=== PATIENT | female | born 1980 | race Caucasian/White ===

== ENCOUNTER 2020-08-29 09:27 | Outpatient (CLI) | payer BC, SELFPAY ==
--- NOTE | 2020-08-29 09:30 | US_ITS ---
WS: [id number] ULTRASOUND SOFT TISSUES LEFT axilla. HISTORY: R22.32 - Localized swelling, mass and lump, left upper limb COMPARISON: None available. TECHNIQUE: 2-D and color Doppler imaging is submitted. The area soft tissue thickening corresponds to an isoechoic mass measuring 4.5 x 3.0 cm in the LEFT a xilla. This is deep to the subcutaneous soft tissue. No increased vascularity. I favor this is probab ly a lipoma due to its characteristics. US/US soft tissue/extremity 47761 IMPRESSION: Palpable area in the LEFT axilla is very nonspecific and probably represents a benign lipoma. Clinically if there is continued concern further evaluation by C T may be helpful to evaluate the surrounding structures.
[2020-08-29 10:13] LABS: Basophils % 0.4 %; Eosinophils # 0.1 10^3/uL (0.0-0.8); Eosinophils % 1.8 %; Hematocrit 42.5 % (37.0-47.0); Hemoglobin 13.5 g/dL (11.5-15.3); Lymphocytes # 2.2 10^3/uL (0.8-4.8); Lymphocytes % 29.9 %; Mean Corpuscular HGB Conc 31.8 g/dL (30.0-36.0); Mean Corpuscular Hemoglobin 29.7 pg (28.0-34.0); Mean Corpuscular Volume 93.4 fL (81-99); Mean Platelet Volume 9.5 fL (7.4-10.4); Monocytes # 0.5 10^3/uL (0.2-0.9); Monocytes % 7.2 %; Neutrophils # 4.46 10^3/uL (1.8-7.7); Neutrophils % 60.4 %; Nucleated Red Blood Cells % 0 %; Platelet Count 321 10^3/cmm (130-400); Red Blood Count 4.55 10^6/uL (4.1-5.3); Red Cell Distribution Width 13.2 % (12.1-15.1); White Blood Count 7.4 10^3/uL (4.0-10.0)
== END 2020-08-29 09:28 | disposition home or self-care (01) ==
LOC: US 09:36
PROVIDERS: PCP Nurse Practitioner Family; Visit Provider Nurse Practitioner Family
DX: R22.32 Localized swelling, mass and lump, left upper limb (principal)
CPT/HCPCS: 36415; 76882; 85025

== ENCOUNTER → 2021-02-13 10:06 | Outpatient (BNVA) | payer BC, SELFPAY | PROVIDERS: PCP Nurse Practitioner Family; Visit Provider Nurse Practitioner Family | DX: N20.0 Calculus of kidney (principal); M54.9 Dorsalgia, unspecified; L91.8 Other hypertrophic disorders of the skin; R31.9 Hematuria, unspecified; Z12.4 Encounter for screening for malignant neoplasm of cervix | CPT/HCPCS: 81000; 88175 ==

== ENCOUNTER → 2023-06-25 08:40 | Outpatient (BNVA) | payer BC, SELFPAY | PROVIDERS: PCP Nurse Practitioner Family; Referring Provider Registered Nurse; Visit Provider Nurse Practitioner Women's Health | DX: N93.9 Abnormal uterine and vaginal bleeding, unspecified (principal); Z12.4 Encounter for screening for malignant neoplasm of cervix | CPT/HCPCS: 84443; 84702; 85025; 87624 ==

== ENCOUNTER → 2023-07-12 15:19 | Outpatient (BNVA) | payer BC, SELFPAY | PROVIDERS: PCP Nurse Practitioner Family; Visit Provider Nurse Practitioner Women's Health | DX: N92.0 Excessive and frequent menstruation with regular cycle (principal); D25.1 Intramural leiomyoma of uterus | CPT/HCPCS: 76830 ==

== ENCOUNTER → 2023-07-15 15:12 | Outpatient (BNVA) | payer BC, SELFPAY | PROVIDERS: PCP Nurse Practitioner Family; Visit Provider Nurse Practitioner Women's Health | DX: N93.9 Abnormal uterine and vaginal bleeding, unspecified (principal); N81.2 Incomplete uterovaginal prolapse | CPT/HCPCS: 81025; 88305 ==

== ENCOUNTER → 2023-08-10 11:42 | Day surgery (SDC) | payer BC, SELFPAY ==
[2023-08-02 10:11] LABS: OR HCG Qualitative Urine Negative (Negative)
[2023-08-02 10:25] LABS: Add Urine Microscopic? YES; Bilirubin Urine Neg (Negative); Blood Urine 2+ (Negative); Glucose Urine UA Norm (Normal); Ketones Urine Negative (Negative); Leukocyte Esterase Urine Negative (Negative); Nitrate Urine Negative (Negative); Protein Urine Neg (Negative); Specific Gravity, Urine 1.015 (1.005-1.030); Urine Appearance Clear (CLEAR); Urine Color Yellow (Yellow); Urobilinogen Urine Norm (Negative); pH Urine 5 (5-7)
--- NOTE | 2023-08-02 10:25 | ANES.PREANE2 ---
Pre-Anesthetic Assessment Height/Weight: Height 1.57 m Preop Diagnosis: abnormal uterine bleeding Operation Date: 08/10/23 13:25 Proposed Procedures p Hysteroscopy, polypectomy with Myosure 00737 D25.9,N93.9(Not Applicable) - Sacha Sewell MD s Poylpectomy(Not Applicable) - Sacha Sewell MD Familial anesthetic complications: none Was Beta Pito taken within 24 hours: N/A Was Clonidine taken within 24 hours: N/A Social No alcohol and No tobacco Exam alert, oriented x 3, clear to auscultation bilaterally and regular rate & rhythm Airway Submandibular: within normal limits Cervical ROM: within normal limits Mallampati: Class II Dentition: full CV/HEM Hypertension Metabolic Diabetes Mellitus Anesthetic Plan ASA status: 2 Anesthesia: General Medications/Allergies Home Medications Medication Instructions Recorded Confirmed Last Taken Type semaglutide 0.25 mg or 0.5 mg (2 0.5 mg SUBCUT .once weekly 06/25/23 08/02/23 07/30/23 History mg/1.5 mL) subcutaneous pen injector norgestimate 0.25 mg-ethinyl 1 tab PO DAILY contraception, 07/26/23 08/02/23 08/02/23 Rx estradiol 35 mcg tablet (Sprintec menorrhagia #84 tabs (28)) lisinopril 10 mg tablet 10 mg PO DAILY 08/02/23 08/02/23 08/02/23 History Allergies Allergy/AdvReac Type Severity Reaction Status Date / Time No Known Allergies Allergy Verified 08/02/23 09:30 [facility] Anesthesia Medical History Hypertension No pertinent past medical history neghx: thyroid,dvt/pe PCP: Satya Heath at [facility] Type 2 diabetes mellitus Surgical History History of bilateral carpal tunnel release History of cholecystectomy History of tonsillectomy and adenoidectomy Family History Grandmother Breast cancer Grandfather Diabetes Mother Hypertension Thyroid disease Denies family history of Colon cancer Ovarian cancer Prostate cancer Heart disease Hyperlipidemia Uterine cancer Stroke Female Reproductive History Date of last menstrual period: 08/02/23 Data Anesthesia 08/02/23 09:42 08/02/23 09:42 Cardiac Studies: No Data to Display
[2023-08-02 10:28] LABS: Add Urine Culture? No; Bacteria Urine TRACE /hpf; Mucus Urine 1+ /hpf; RBC Urine 0-4 /hpf (0-2); Squamous Epithelial Cell Urine 0-4 /hpf (0-5); WBC Urine RARE /hpf (0-5)
[2023-08-02 10:30] LABS: Basophils % 0.5 %; Eosinophils # 0.1 10^3/uL (0.0-0.8); Eosinophils % 2.2 %; Hematocrit 39.2 % (36-47); Lymphocytes % 32.2 %; Mean Corpuscular HGB Conc 32.9 g/dL (30-55); Mean Corpuscular Hemoglobin 30.2 pg (27-33); Mean Corpuscular Volume 91.8 fl (85-98); Mean Platelet Volume 10.7 fL (7.4-10.4); Monocytes # 0.3 10^3/uL (0.2-0.9); Monocytes % 5.4 %; Neutrophils # 3.71 10^3/uL (1.8-7.7); Neutrophils % 59.5 %; Nucleated Red Blood Cells % 0 %; Platelet Count 272 10^3/cmm (157-399); Red Blood Count 4.27 10^6/uL (3.85-5.65); Red Cell Distribution Width 12.9 % (12.1-15.1); White Blood Count 6.24 10^3/uL (3.29-11.43)
[2023-08-02 10:52] LABS: Alanine Aminotransferase 12 U/L (0-33); Albumin Level 3.8 g/dL (3.5-5.2); Alkaline Phosphatase 54 U/L (35-105); Anion Gap 13.9 (5-19); Aspartate Amino Transferase 12 U/L (0-32); Blood Urea Nitrogen 13 mg/dL (6-20); Calcium 8.6 mg/dL (8.5-10.5); Carbon Dioxide 22 mmol/L (22-29); Chloride 104 mmol/L (98-107); Globulin 2.9 g/dL (1.3-4.6); Glomerular Filtration Rate 110.2 mL/min (90-130); Glucose 87 mg/dL (65-115); Osmolality Calculated 281 mOsm/kg (285-295); Potassium 3.9 mmol/L (3.5-5.1); Sodium 136 mmol/L (136-145); Total Bilirubin 0.7 mg/dL (0.15-1.2); Total Protein 6.7 g/dL (6.6-8.7)
[2023-08-10] VITALS (13 sets, daily range): BP systolic 134–158; BP diastolic 84–100; PULSE 74–92; RESP 10–19; TEMP 36.3–36.8; O2SAT 90–100; BMI 29.4
[2023-08-10 12:15] LABS: OR HCG Qualitative Urine Negative (Negative)
[2023-08-10 12:32] LABS: Glucose Point of Care 81 mg/dL (70-110)
[2023-08-10] MEDS: scopolamine 1.5 Patch 1 PATCH TRANSDERMA (12:49)
[2023-08-10] MEDS: enoxaparin 30 mg/0.3 mL Syringe SUBCUT (12:49)
[2023-08-10] MEDS: sodium chloride 0.9% 500 ML IV (12:50)
--- NOTE | 2023-08-10 13:06 | P.ANESUD_ITS ---
Pre-Anesthetic Update Pre-Anesthetic Assessment: Date of Surgery/Procedure: 08/10/23 Preop Miranda gnosis: abnormal uterine bleeding Proposed Procedure: Operation Date: 08/10/23 13:25 Proposed Procedures p Hysteroscopy, polypectomy with Myosure 31865 D25.9,N93.9(Not Applicable) - Sacha Sewell MD s Poylpectomy(Not Applicable) - Sacha Sewell MD Any changes to Pre-Anesthetic Assessment?: No Last Intake: Intake Last Liquid Date 08/09/23 Last Liquid Time 21:00 Last Solid Date 08/09/23 Last Solid Time 21:00 Vitals: Temperature 97.4 F L 08/10/23 12:07 Temperature Source Temporal Artery S can 08/10/23 12:07 Pulse Rate 74 08/10/23 12:07 Pulse Rhythm Regular 08/10/23 12:09 Pulse Strength 3+ Normal 08/10/23 12:09 Respiratory Rate 16 08/10/23 12:07 Blood Pressure 139/90 08/10/23 12:07 Blood Pressure Valeria n 106 08/10/23 12:07 Pulse Oximetry 100 08/10/23 12:07 Oxygen Delivery Me thod Room Air 08/10/23 12:09 Exam: Pre-Anes Outpt Exam: alert, oriented x 3, clear to auscultation bilaterally and regular rate & rhythm Cardiac Studies: No Data to Display
--- NOTE | 2023-08-10 13:30 | W.PM.OPSUD ---
Surgery/Procedure H&P Update DATE OF PROCEDURE: August 10, 2023 DATE H&P PERFORMED: 08/02/23 H&P UPDATE INFORMATION: I have reviewed H&P completed within last 30 days, I have examined patient prior to procedure and No changes to prior documentation PREOP DIAGNOSIS: abnormal uterine bleeding PLANNED PROCEDURE: Operation Date: 08/10/23 13:25 Proposed Procedures p Hysteroscopy, polypectomy with Myosure 67771 D25.9,N93.9(Not Applicable) - Sacha Sewell MD s Poylpectomy(Not Applicable) - Sacha Sewell MD
[2023-08-10] MEDS: sodium chloride 0.9% 1,000 ML 30 ML IV (13:34)
[2023-08-10] MEDS: ceFAZolin 2,000 MG in sodium chloride 0.9% (plus) 50 ML 100 MG IV (15:24)
[2023-08-10] MEDS: lidocaine-epi 2% 20 mL INJ INJECTION (15:40)
--- NOTE | 2023-08-10 16:04 | PM.OP ---
Operative Report Date of procedure: August 10, 2023 Surgeon: Sacha Sewell MD
--- NOTE | 2023-08-10 16:05 | PM.OP ---
Operative Report Date of procedure: August 10, 2023 Pre-op diagnosis: Abnormal uterine bleeding Post-op diagnosis: Abnormal uterine bleeding Uterine prolapse stage3 Procedure done: Hysteroscopy and D&C via MyoSure Surgeon: Sacha Sewell MD Estimated blood loss (mL): 10 IV fluids (mL): 800 Complications: none Findings: Uterine prolapase stage3 Procedure: After informed consent, the risks included but were not limited to bleeding, infection, injury to internal organs. The patient was counseled on a possible laparotomy and on the potential need for hysterectomy. The patient expressed understanding of the risks involved, all questions were answered, and the patient consented to the procedure. The patient was taken to the operating room where general anesthesia was administered. She was placed in the dorsal lithotomy position and prepped and draped in sterile fashion. A time out procedure was performed. The patient was examined under anesthesia and found to have a normal uterus with normal adnexa. A sterile weight speculum was placed in the vagina. The uterus was then gently sounded to 9 cm, and the cervix was dilated. The 0 degrees MyoSure hysteroscope was advanced gently to the uterine fundus while visualizing the monitor. Survey of the uterine cavity showed: Proliferative endometrium, the fundus shows normal proliferative endometrium; left ostium was visualized, and lateral wall with proliferative endometrium; right ostium visualized, and lateral wall with proliferative endometrium; anterior and posterior cochran are with proliferative endometrium; endocervical canal is normal. The MyoSure device was advanced and the direct visualization the endometrium was morcellated without complication. At the end of morcellation the fluid deficit was 200 mL and was estimated at approximately 200 mL were on the floor. There was minimal bleeding noted and the tenaculum removed with goad hemostasis noted. The patient tolerated the procedure well. The patient was taken to the recovery area in stable condition.
[2023-08-10] MEDS: ondansetron 2 mg/ML SDV 2 mL 4 MG IVP ×2 (16:35→16:55)
[2023-08-10] MEDS: fentaNYL 50 mcg/mL INJ 2mL IVP (16:35)
[2023-08-10 16:57] LABS: Glucose Point of Care 95 mg/dL (70-110)
[2023-08-10] MEDS: ketorolac 30 mg/mL INJ IVP (17:33)
[2023-08-10] MEDS: diphenhydrAMINE 50 mg/mL SDV 1mL 12.5 MG IVP (17:58)
--- NOTE | 2023-08-10 18:10 | PC.NURSE ---
1740-Report taken received from Sarmad Rooney R.N. and care turned over to me.
== END | disposition home or self-care (01) ==
PROVIDERS: PCP Registered Nurse; Visit Provider Obstetrics & Gynecology
PROC: 0UDB8ZZ Extraction of Endometrium, Via Natural or Artificial Opening Endoscopic (ICD-10-PCS; CPT 58558; principal; 2023-08-10 13:15)
PROC: (CPT 58558; 2023-08-10 13:15)
DX: N93.9 Abnormal uterine and vaginal bleeding, unspecified (principal); I10 Essential (primary) hypertension; E11.9 Type 2 diabetes mellitus without complications
CPT/HCPCS: 58558; 36415; 36416; 80053; 81001; 81025; 82962; 84703; 85025; 86850; 86900; 88305; J0690; J1100; J1200; J1650; J1885; J2250; J2405; J2704; J3010; J7030; J7040

== ENCOUNTER 2024-02-01 16:52 | Observation (INO) | payer BC, SELFPAY ==
--- NOTE | 2024-01-24 11:56 | P.ANESASSM_ITS ---
Pre-Anesthetic Assessment Height/Weight: Height 1.57 m Operation Date: 02/01/24 13:50 Proposed Procedures p Total Vaginal Hysterectomy(Not Applicable) - Sacha Sewell MD s Anterior Repair Anterior Colporrhaphy(Not Applicable) - Sacha Sewell MD s Posterior Repair Posterior Colporrhaphy(Not Applicable) - Sacha Sewell MD s Sling Single Incision Midurethral Sling(Not Applicable) - Sacha Sewell MD Social No alcohol and No tobacco Exam alert, oriented x 3, clear to auscultation bilaterally and regular rate & rhythm Airway Submandibular: within normal limits Cervical ROM: within normal limits Mallampati: Class I Pulmonary None reported CV/HEM Hypertension None reported Hepatic None reported GI None reported Metabolic Diabetes Mellitus 80 lb weight loss on Semaglutide Musc/skel None reported Anesthetic Plan ASA status: 2 Anesthesia: General Other: hx of PONV. Will plan on TIVA Medications/Allergies Home Medications Medication Instructions Recorded Confirmed Last Taken Type semaglutide 0.25 mg or 0.5 mg (2 0.5 mg SUBCUT .once weekly 06/25/23 01/24/24 01/21/24 History mg/1.5 mL) subcutaneous pen injector lisinopril 10 mg tablet 5 mg PO DAILY 08/02/23 01/24/24 01/24/24 History acetaminophen 325 mg capsule 325 mg PO Q4H PRN fever or pain 08/10/23 01/24/24 Unknown Rx #60 caps ibuprofen 800 mg tablet 800 mg PO TID PRN pain #60 tabs 08/10/23 01/24/24 Unknown Rx norgestimate 0.25 mg-ethinyl 1 tab PO DAILY contraception, 09/23/23 01/24/24 01/24/24 Rx estradiol 35 mcg tablet (Sprintec menorrhagia #84 tabs (28)) biotin 10,000 mcg chewable tablet mcg PO 01/24/24 Unknown History (Hair, Skin and Nails (biotin)) bisacodyl 5 mg tablet,delayed 5 mg PO DAILY 01/24/24 01/24/24 01/24/24 History release (Dulcolax (bisacodyl)) cholecalciferol (vitamin D3) 50 50 mcg PO DAILY 01/24/24 01/24/24 01/24/24 History mcg (2,000 unit) tablet (Vitamin D3) magnesium 500 mg tablet 15 mg PO DAILY 01/24/24 01/24/24 01/24/24 History mecobalamin (vitamin B12) 1,000 1,000 mcg PO DAILY 01/24/24 01/24/24 01/24/24 History mcg chewable tablet (B12 Active) [id number] 1 mg tab PO 01/24/24 Unknown History tablet Allergies Allergy/AdvReac Type Severity Reaction Status Date / Time No Known Allergies Allergy Verified 01/24/24 11:19 ON LICENSE OF [facility] Anesthesia Medical History No pertinent past medical history neghx: thyroid,dvt/pe PCP: Sat[facility] at [facility] Type 2 diabetes mellitus Hypertension Surgical History History of hysteroscopy (~08/10/23) with d&C via MyoSure performed by Dr. Sewell at [facility]. Benign pathology; benign polyp. History of tonsillectomy and adenoidectomy History of bilateral carpal tunnel release History of cholecystectomy Family History Grandmother Breast cancer Grandfather Diabetes Mother Hypertension Thyroid disease Denies family history of Colon cancer Ovarian cancer Prostate cancer Heart disease Hyperlipidemia Uterine cancer Stroke Data Anesthesia Cardiac Studies: No Data to Display
[2024-02-01] VITALS (14 sets, daily range): BP systolic 110–176; BP diastolic 64–101; PULSE 64–97; RESP 16–23; TEMP 36.1–37.6; O2SAT 93–100; BMI 31.2
[2024-02-01 12:19] LABS: OR HCG Qualitative Urine Negative (Negative)
[2024-02-01] MEDS: scopolamine 1.5 Patch 1 PATCH TRANSDERMA (12:22)
[2024-02-01] MEDS: sodium chloride 0.9% 1,000 ML 30 ML IV (12:24)
[2024-02-01 12:26] LABS: Basophils % 0.6 %; Eosinophils # 0.3 10^3/uL (0.0-0.8); Eosinophils % 4.2 %; Hematocrit 43.4 % (36-47); Lymphocytes # 2.4 10^3/uL (0.8-4.8); Lymphocytes % 38.4 %; Mean Corpuscular HGB Conc 32.9 g/dL (30-55); Mean Corpuscular Hemoglobin 30.7 pg (27-33); Mean Corpuscular Volume 93.1 fl (85-98); Mean Platelet Volume 9.9 fL (7.4-10.4); Monocytes # 0.3 10^3/uL (0.2-0.9); Monocytes % 5.2 %; Neutrophils # 3.19 10^3/uL (1.8-7.7); Neutrophils % 51.4 %; Nucleated Red Blood Cells % 0 %; Platelet Count 267 10^3/cmm (157-399); Red Blood Count 4.66 10^6/uL (3.85-5.65); Red Cell Distribution Width 12.9 % (12.1-15.1)
[2024-02-01 12:29] LABS: Bilirubin Urine Neg (Negative); Blood Urine 3+ (Negative); Glucose Urine UA Norm (Normal); Ketones Urine Negative (Negative); Leukocyte Esterase Urine Negative (Negative); Nitrate Urine Negative (Negative); Protein Urine Neg (Negative); Specific Gravity, Urine 1.015 (1.005-1.030); Urine Appearance Clear (CLEAR); Urine Color Yellow (Yellow); Urobilinogen Urine Norm (Negative); pH Urine 5 (5-7)
[2024-02-01 12:31] LABS: Add Urine Culture? No; RBC Urine 0-4 /hpf (0-2); Squamous Epithelial Cell Urine RARE /hpf (0-5); WBC Urine 0-4 /hpf (0-5)
[2024-02-01 12:46] LABS: Anion Gap 15.7 (5-19); Blood Urea Nitrogen 13 mg/dL (6-20); Carbon Dioxide 24 mmol/L (22-29); Chloride 104 mmol/L (98-107); Creatinine Clr Calc Pharmacy 118.9897; Glomerular Filtration Rate 110.2 mL/min (90-130); Glucose 85 mg/dL (65-115); Osmolality Calculated 289 mOsm/kg (285-295); Potassium 3.7 mmol/L (3.5-5.1); Sodium 140 mmol/L (136-145)
[2024-02-01] MEDS: ceFAZolin 2,000 MG in sodium chloride 0.9% (plus) 50 ML 100 MG IV (13:19)
--- NOTE | 2024-02-01 13:41 | W.PM.OPSUD ---
Surgery/Procedure H&P Update DATE OF PROCEDURE: February 01, 2024 DATE H&P PERFORMED: 01/24/24 H&P UPDATE INFORMATION: I have reviewed H&P completed within last 30 days, I have examined patient prior to procedure and No changes to prior documentation PLANNED PROCEDURE: Operation Date: 02/01/24 13:20 Proposed Procedures p Total Vaginal Hysterectomy(Not Applicable) - Sacha Sewell MD s Anterior Repair Anterior Colporrhaphy(Not Applicable) - MD mendoza Guan Posterior Repair Posterior Colporrhaphy(Not Applicable) - Sacha Sewell MD s Sling Single Incision Midurethral Sling(Not Applicable) - Sacha Sewell MD
--- NOTE | 2024-02-01 13:50 | ANES.PAUD2 ---
Pre-Anesthetic Update Pre-Anesthetic Assessment: Date of Surgery/Procedure: 02/01/24 Proposed Procedure: Operation Date: 02/01/24 13:20 Proposed Procedures p Total Vaginal Hysterectomy(Not Applicable) - Sacha Sewell MD s Anterior Repair Anterior Colporrhaphy(Not Applicable) - Sacha Sewell MD s Posterior Repair Posterior Colporrhaphy(Not Applicable) - Sacha Sewell MD s Sling Single Incision Midurethral Sling(Not Applicable) - Sacha Sewell MD Any changes to Pre-Anesthetic Assessment?: No Last Intake: Intake Last Liquid Date 01/31/24 Last Liquid Time 22:00 Last Solid Date 01/31/24 Last Solid Time 22:00 Labs Last 48hrs: Short CBC 02/01/24 Range/Units 12:15 WBC 6.20 (3.29-11.43) 10^ 3/uL Hgb 14.30 (11.27-16.99) g/ dL Hct 43.4 (36-47) % MCV 93.1 (85-98) fl Plt Count 267 (157-399) 10^3/c mm Neut % (Auto) 51.4 % Neut # (Auto) 3.19 (1.8-7.7) 10^3/u L BMP 02/01/24 12:15 Sodium 140 Potassium 3.7 Chloride 104 Carbon Dioxide 24 BUN 13 Creatinine 0.6 Glucose 85 Calcium 9.0 Urine 02/01/24 Range/Units 12:00 Urine Color Yellow (Yellow) Urine Appearance Clear (CLEAR) Urine pH 5 (5-7) Ur Specific Gravit y 1.015 (1.005-1.030) Urine Protein Neg (Negative) Urine Glucose (UA) Norm (Normal) Urine Ketones Negative (Negative) Urine Nitrate Negative (Negative) Urine Bilirubin Neg (Negative) Ur Leukocyte Jazlyn ase Negative (Negative) Urine RBC 0-4 H (0-2) /hpf Urine WBC 0-4 H (0-5) /hpf Blood Bank 02/01/24 12:15 Blood Type A Positive Rho(D) Type Rh positive Antibody Screen Negative Vitals: Temperature 98.0 F 02/01/24 12:21 Pulse Rate 69 02/01/24 12:21 Respiratory Rate 17 02/01/24 12:21 Blood Pressure 176/101 02/01/24 12:21 Blood Pressure Valeria n 126 02/01/24 12:21 Pulse Oximetry 99 02/01/24 12:21 Exam: Pre-Anes Outpt Exam: alert, oriented x 3, clear to auscultation bilaterally and regular rate & rhythm Cardiac Studies: No Data to Display
[2024-02-01] MEDS: lidocaine-epi 2% PF 1:200,000 20 mL SDV INJECTION (14:56)
[2024-02-01] MEDS: lidocaine-epi 1% PF 1:200,000 30 mL SDV INJECTION (15:56)
--- NOTE | 2024-02-01 16:30 | P.BOP_ITS ---
Date of Procedure: 02/01/24 Surgeon: Sacha Sewell MD Electrical Transmission Engineer(s): Procedure(s) performed: Total vaginal hysterectomy, anterior colporrhaphy, mid urethral sling, posterior colporrhaphy, cystoscopy Findings of the procedure(s): Uterine prolapse, cystocele, rectocele Estimated blood loss: 300 Specimen(s) removed: Uterus Post-operative diagnosis: Same as admission diagnosis
--- NOTE | 2024-02-01 16:32 | P.OP_ITS ---
Operative Report Date of procedure: February 01, 2024 Pre-op diagnosis: Cystocele with uterine prolapse Uterine fibroid Post-op diagnosis: Cystocele Uterine prolapse Rectocele Post-op findings: Enlarged uterus Procedure done: Total vaginal hysterectomy Anterior colporrhaphy Mid urethral sling Posterior colporrhaphy Implants: Coloplast Altis sling Specimens removed/disposition: Uterus Surgeon: Sacha Sewell MD Estimated blood loss (mL): 300 Complications: None Procedure: After informed consent and risks, benefits, indications and alternatives reviewed with the patient was taken to the operating room. The patient was placed in dorsal lithotomy position prepped, and draped in the usual sterile fashion. The pre-procedure timeout verifying the correct patient, procedure, site and side, could not requirements was performed and acknowledge by the OR team. A Trejo catheter was placed. A Bookwalter vaginal retractor was placed into the vagina in usual manner visualize the cervix. Cervix was grasped with a single tooth tenaculum and circumferentially infiltrated with 2% lidocaine with epinephrine. Then cervix was circumferentially incised with bovie and the bladder was dissected off the pubovesical cervical fascia anteriorly with a sponge stick and Metzenbaum scissors. The anterior peritoneal reflection was identified and the anterior cul-de-sac was entered sharply with Metzenbaum scissors. The same procedure was performed posteriorly and a posterior colpotomy was made through the posterior cul-de-sac space without difficulty and the posterior blade of the Bookwalter vaginal retractor was advanced posteriorly into the cul-de-sac. At this time, the left and right uterosacral ligaments were isolated and ligated with 0 Vicryl. The LigaSure device was placed over the uterosacral ligaments on either side and was then used in a serial fashion up through the cardinal ligaments bilaterally cross-clamped, cut, and sealed with the LigaSure device. Finally, the uterine arteries were cross-clamped, cut, sealed and ligated with the LigaSure device. Hemostasis was assured. The broad ligaments were then serially clamped, sealed and cut with the LigaSure device on both sides. Excellent hemostasis was visualized. Both cornua were clamped, sealed and cut with the LigaSure device. Then the pedicles were then suture ligated with excellent hemostasis. The uterus was excised and submitted for pathologic evaluation. No other abnormalities were noted in the pelvic cavity. The peritoneum was then closed in a pursestring fashion with 0 Vicryl suture. The vaginal cuff angles were closed with [id number] #0 Vicryl suture on both sides and transfixed with the ipsilateral cardinal and uterosacral ligaments. The remainder of the vaginal cuff was closed with #0 Vicryl in a running locked fashion. The anterior vaginal mucosa beneath the midurethra was infiltrated with 2% lidocaine with epinephrine. A vertical midline incision was made beneath the midurethra, nearly 1.5 cm length. Careful submucosal dissection was performed bilaterally up to the interior portion of the inferior pubic ramus. The insertion of adductor longus tendon on the patient?s pubic ramus was identified as reference land steven. Palpated the notch along the internal edge of ischiopubic ramus where the adductor longus tendon and the inferior pubic ramus meet. The Altis single incision sling (SIS) was selected. Then the needle of the SIS inserted aiming at the location of this notch. One of the integrated self- fixating tips place onto the needle by sliding it over the end of the needle. The needle/sling assembly was inserted toward the location of identified reference notch making sure that the flat of the handle is perpendicular to the desired path. The needle was tracked along the posterior surface of the ischiopubic ramus until the midline steven on the mesh is approximately at the midline position under the urethra. The needle was removed and the same was repeated on the contralateral side until the appropriate sling tension under the urethra was achieved ensuring that the mesh lays flat. The needle was removed and vaginal incision was closed in a running interlocking fashion with 2-0 Vicryl. An anterior repair was then performed. The medial portion of the anterior vaginal wall was grasped with two Allis clamps and the mucosa was infiltrated with the previous vasopressin solution. The Metzenbaum scissors were used to dissect and undermine a plane medially up to the point of reflexion anteriorly of the bladder. The vaginal mucosa was incised medially. This tissue was then grasped with Cade clamps and dissected away with a combination of sharp and blunt dissection on both sides. A suture of 2-0 vicryl was then used to connect the lateral pubovesical connective tissue on either side together in a series of bites that was repeated in two layers. The excess vaginal mucosa was trimmed and the incision repaired with a locked suture of 0 vicryl. A dilute 2% lidocaine with epinephrine solution was infiltrated under the posterior vaginal mucosa midline and into the perineal body. A jw of skin was cut in the perineum. The posterior vaginal wall was opened vertically and midline up to the apex of the rectocele. The cut edges were held and splayed laterally with a series of Allis clamps. The open vaginal mucosa was then dissected laterally with a combination of sharp and blunt dissection, exposing the perirectal fascia. The perirectal fascia was then reapproximated with interrupted #2-0 Vicryl sutures to draw the lateral folds together and tuck the rectocele back. Deep interrupted sutures of #0 Vicryl were used to reapproximate the fibers of the levator ani muscles. The excess vaginal mucosa was trimmed. The posterior vaginal wall was closed with a running locked #0 Vicryl to the hymenal tags. The superficial perineal muscles were closed with running unlocked #0 Vicryl and the perineal skin was closed with running subcuticular #2-0 Vicryl. Bludigo was given IV At this time, instruments were removed from the vagina at hemostasis assured. Then the Trejo catheter was removed and cystoscope was inserted. The bladder was filled with sterile water. Complete evaluation of the bladder mucosa was performed noting no lacerations, dimpling, tears, bleeding of the mucosa or muscular layers. Both ureteral orifices were identified. Prompt excretion of urine from both ureteral orifices was noted. Cystoscope was withdrawn. Trejo catheter was then placed yielding clear alejo urine. A vaginal packing was placed and the patient was taken out of dorsal lithotomy position and awakened from the general anesthesia. The patient tolerated the procedure well and was taken to the PACU recovery room in a stable condition. Sponge, lap, needle and instruments counts were correct x3.
--- NOTE | 2024-02-01 16:57 | PC.NURSE ---
Oral airway removed. Patient remains sleepy
--- NOTE | 2024-02-01 17:12 | PC.NURSE ---
Report given to Sarmad
[2024-02-01] MEDS: fentaNYL 50 mcg/mL INJ 2mL IVP (17:15)
--- NOTE | 2024-02-01 17:45 | ANE.PACU2 ---
Inpatient post-anesthesia follow up: Airway intact: Yes Vital signs: Temperature 98.4 F Pulse Rate 64 Respiratory Rate 18 Blood Pressure 138/76 Pulse Oximetry 97 Oxygen Delivery Me thod Room Air Oxygen Flow Rate 8 Fraction of Inspir ed Oxygen Hydration adequate: Yes Nausea and vomiting: No Pain level: 1 Mental status: Baseline
[2024-02-01] MEDS: dextrose 5%-lactated ringers 1,000 ML 125 ML IV (20:56)
[2024-02-01] MEDS: HYDROcodone-acetaminophen 5-325 mg Tablet PO (21:05)
[2024-02-01] MEDS: ondansetron 2 mg/ML SDV 2 mL 4 MG IVP (21:06)
[2024-02-01] MEDS: ketorolac 30 mg/mL INJ IVP (22:51)
[2024-02-02] VITALS: BP 150/91; PULSE 94; RESP 16; TEMP 36.7; O2SAT 97
[2024-02-02 02:00] VITALS: BP 124/72; PULSE 88; RESP 17; TEMP 36.9; O2SAT 95
[2024-02-02] MEDS: ketorolac 30 mg/mL INJ IVP (05:22)
[2024-02-02 05:29] LABS: Hematocrit 34.8 % (36-47); Mean Corpuscular HGB Conc 32.8 g/dL (30-55); Mean Corpuscular Volume 91.6 fl (85-98); Mean Platelet Volume 10.1 fL (7.4-10.4); Platelet Count 217 10^3/cmm (157-399); Red Cell Distribution Width 12.7 % (12.1-15.1); White Blood Count 9.92 10^3/uL (3.29-11.43)
--- NOTE | 2024-02-02 05:37 | PC.NURSE ---
Vaginal packing removed at 0520. Pt tolerated procedure well.
[2024-02-02 05:39] VITALS: BP 138/76; PULSE 64; RESP 18; TEMP 36.9; O2SAT 97
[2024-02-02] MEDS: cholecalciferol (vitamin D3) 1,000 unit Tablet 2000 UNIT PO (08:33)
[2024-02-02] MEDS: lisinopril 10 mg Tablet 5 MG PO (08:33)
[2024-02-02] MEDS: docusate sodium 100 mg Capsule PO (08:33)
[2024-02-02] MEDS: PRENATAL VIT NO.130/IRON/FOLIC 1 EACH TABLET PO (08:33)
[2024-02-02 08:35] VITALS: BP 120/78; PULSE 62; RESP 15; TEMP 36.6; TEMP 36.7; O2SAT 98
--- NOTE | 2024-02-02 11:52 | P.DS_ITS ---
Discharge Providers AERIAL PHOTOGRAMMETRIST Date of Admission: 02/01/24 16:52 Date of Discharge: 02/02/24 Attending Provider at Admission: Sacha Sewell MD Attending Provider at Discharge: Sacha Sewell MD Primary Care Provider: ALEXI Davis Reason for Visit Reason for Visit: N39.46, N81.4 Hospital Course Hospital Course Mrs. Tobar 43-year-old female with a history of Cystocele, Uterine prolapse, Rectocele and mixed urinary incontinence. Admitted for planned total vaginal hysterectomy, anterior colporrhaphy with mid urethral sling and posterior colporrhaphy. The procedures were performed without complication. Overnight observation was uneventful. She is afebrile and hemodynamically stable postoperative day 1. Tolerating diet well. Ambulating without difficulty. She was counseled regarding pelvic rest for 6 weeks (no sex, no tampons, no vaginal douches). Return to the emergency room if any fever, increased bleeding or pain. Physical Exam Narrative: GA: Alert and oriented ?3. HEENT: WNL. Heart: Regular rate and rhythm. Lungs: Clear to auscultation bilaterally. Abdomen: Bowel sounds present, nontender. CAKE [employer]IPPER: Spotting bleeding. Extremities: No edema, no cyanosis, no calves pain. Urinary Catheter Management: Trejo: Cath Placed During This Visit: yes, but has since been removed by the nurse Reason for Continuing Indwelling Catheter: Decision to DC Catheter Urinary Catheter Date of Insertion: 02/01/24 Urinary Catheter Time of Insertion: 14:42 Date Urinary Catheter Removed: 02/02/24 Time Urinary Catheter Discontinued: 05:20 History History History 4 Term 3 0 Miscarriages/Ectopic 1 Living Children 3 Discharge Data Studies Completed and Pending Pending at discharge Category Date Time Status Pathology: Surgical [PTH] Routine Pth 02/01/24 15:21 Received Laboratory Results WBC 9.92 10^3/uL (3.29-11.43) 02/02/24 05:18 RBC 3.80 10^6/uL (3.85-5.65) L 02/02/24 05:18 Hgb 11.40 g/dL (11.27-16.99) 02/02/24 05:18 Hct 34.8 % (36-47) L 02/02/24 05:18 MCV 91.6 fl (85-98) 02/02/24 05:18 MCH 30.0 pg (27-33) 02/02/24 05:18 MCHC 32.8 g/dL (30-55) 02/02/24 05:18 RDW 12.7 % (12.1-15.1) 02/02/24 05:18 Plt Count 217 10^3/cmm (157-399) 02/02/24 05:18 MPV 10.1 fL (7.4-10.4) 02/02/24 05:18 Neut % (Auto) 51.4 % 02/01/24 12:15 Lymph % (Auto) 38.4 % 02/01/24 12:15 Zavala % (Auto) 5.2 % 02/01/24 12:15 Eos % (Auto) 4.2 % 02/01/24 12:15 Baso % (Auto) 0.6 % 02/01/24 12:15 Neut # (Auto) 3.19 10^3/uL (1.8-7.7) 02/01/24 12:15 Lymph # (Auto) 2.4 10^3/uL (0.8-4.8) 02/01/24 12:15 Zavala # (Auto) 0.3 10^3/uL (0.2-0.9) 02/01/24 12:15 Eos # (Auto) 0.3 10^3/uL (0.0-0.8) 02/01/24 12:15 Baso # (Auto) 0.0 10^3/uL (0.0-0.1) 02/01/24 12:15 Nucleated RBC % (auto) 0 % 02/01/24 12:15 Nucleated RBCs # 0.0 /100WBC 02/01/24 12:15 Sodium 140 mmol/L (136-145) 02/01/24 12:15 Potassium 3.7 mmol/L (3.5-5.1) 02/01/24 12:15 Chloride 104 mmol/L (98-107) 02/01/24 12:15 Carbon Dioxide 24 mmol/L (22-29) 02/01/24 12:15 Anion Gap 15.7 (5-19) 02/01/24 12:15 BUN 13 mg/dL (6-20) 02/01/24 12:15 Creatinine 0.6 mg/dL (0.5-0.9) 02/01/24 12:15 GFR Calculation 110.2 mL/min (90-130) 02/01/24 12:15 Glucose 85 mg/dL (65-115) 02/01/24 12:15 Calculated Osmolality 289 mOsm/kg (285-295) 02/01/24 12:15 Calcium 9.0 mg/dL (8.5-10.5) 02/01/24 12:15 Urine Color Yellow (Yellow) 02/01/24 12:00 Urine Appearance Clear (CLEAR) 02/01/24 12:00 Urine pH 5 (5-7) 02/01/24 12:00 Ur Specific Ortley 1.015 (1.005-1.030) 02/01/24 12:00 Urine Protein Neg (Negative) 02/01/24 12:00 Urine Glucose (UA) Norm (Normal) 02/01/24 12:00 Urine Ketones Negative (Negative) 02/01/24 12:00 Urine Blood 3+ (Negative) H 02/01/24 12:00 Urine Nitrate Negative (Negative) 02/01/24 12:00 Urine Bilirubin Neg (Negative) 02/01/24 12:00 Urine Urobilinogen Norm mg/dL (Negative) 02/01/24 12:00 Ur Leukocyte Esterase Negative (Negative) 02/01/24 12:00 Urine RBC 0-4 /hpf (0-2) H 02/01/24 12:00 Urine WBC 0-4 /hpf (0-5) H 02/01/24 12:00 Ur Squamous Epith Cells Rare /hpf (0-5) 02/01/24 12:00 Amorphous Sediment Not Reportable 02/01/24 12:00 Urine Bacteria None /hpf (NONE) 02/01/24 12:00 Urine Mucus None /hpf 02/01/24 12:00 Urine HCG, Qual Negative (Negative) 02/01/24 12:00 Blood Type A Positive 02/01/24 12:15 Rho(D) Type Rh positive 02/01/24 12:15 Antibody Screen Negative 02/01/24 12:15 Procedures Performed Total vaginal hysterectomy Anterior colporrhaphy Mid urethral sling Posterior colporrhaphy Cystoscopy Vitals Last Vital Signs Temp 98.0 F 05/22/24 08:35 Pulse 62 02/02/24 08:35 Resp 15 02/02/24 08:35 BP 120/78 02/02/24 08:35 Pulse Ox 98 02/02/24 08:35 O2 Del Method Room Air 02/02/24 08:35 O2 Flow Rate 8 02/01/24 16:55 Results Labs OB ([facility]): Blood Type A Positive 02/01/24 Antibody Screen Negative 02/01/24 Hct 34.8 % (36-47) L 02/02/24 Hgb 11.40 g/dL (11.27-16.99) 02/02/24 Rho(D) Type Rh positive 02/01/24 Plt Count 217 10^3/cmm (157-399) 02/02/24 TSH 1.82 uIU/mL (0.27-4.20) 06/25/23 Ser , Semi-Qnt 1.00 mIU/mL 06/25/23 HCG, Qual Negative (Negative) 07/15/23 Pap Smear Interpret See note 06/25/23 Discharge Plan Discharge Patient Disposition: Home Condition: Stable Prescriptions: New hydrocodone-acetaminophen 5-325 mg tablet 1 tab PO Q4H PRN (Reason: pain) Qty: 20 0RF acetaminophen 325 mg capsule 325 mg PO Q4H PRN (Reason: fever or pain) Qty: 60 0RF ibuprofen 800 mg tablet 800 mg PO TID PRN (Reason: pain) Qty: 60 0RF oxybutynin chloride 5 mg tablet extended release 24hr 5 mg PO DAILY Qty: 30 0RF Continued semaglutide 0.25 mg or 0.5 mg(2 mg/1.5 mL) pen injector 0.5 mg SUBCUT .once weekly norgestimate-ethinyl estradiol [Sprintec (28)] 0.25-35 mg-mcg tablet 1 tab PO DAILY Qty: 84 1RF lisinopril 10 mg tablet 5 mg PO DAILY ibuprofen 800 mg tablet 800 mg PO TID PRN (Reason: pain) Qty: 60 0RF acetaminophen 325 mg capsule 325 mg PO Q4H PRN (Reason: fever or pain) Qty: 60 0RF magnesium 500 mg Tablet 15 mg PO DAILY 1 mg Tablet 1 tab PO DAILY bisacodyl [Dulcolax (bisacodyl)] 5 mg Tablet,Delayed Release (Dr/Ec) 5 mg PO DAILY Vitamin D3 50 mcg (2,000 unit) Tablet 50 mcg PO DAILY mecobalamin (vitamin B12) [B12 Active] 1,000 mcg Tablet,Chewable 1,000 mcg PO DAILY Hair, Skin and Nails (biotin) 10,000 mcg Tablet,Chewable 10,000 mcg PO DAILY Discharge Orders: Discharge Order (Routine); Ordered 02/02/24 Ordered By: Sacha Sewell Referrals: Sacha Sewell MD [Physician] - (Follow up appointments as follows: 02/14/24 @ 11:30, 6 week follow up on 03/13/24 @ 9:15 a.m) Discharge Diet: Usual diet Discharge Activity: Limit activity as instructed Patient Instructions: Opioid Safety (DC), Bladder Sling for Women (DC), Vaginal Hysterectomy (DC), Anterior Vaginal Repair (DC), Posterior Vaginal Repair (DC), OB Discharge Report, OB Food/Drug Interaction Guide, Opioid Safety Activity Restrictions/Additional Instructions: 1. Please call [facility] on next working day to make your post-operative appointment in 2 weeks. 2. Please stay home until you come back to the clinic on first post- hospatilization check up. 3. Please follow instructions on your medications CAREFULLY. 4. If you have abdominal incision, do not cover it unless dressing is necessary because of drainage. OK to shower, but avoid bath. Leave steri-strips until they fall off. If they are still on one week after surgery, you may remove them. 5. If you had vaginal surgery or vaginal repair, Dr. Sewell may instruct you to take SITZ bath. 6. Yellow, blood tinged odorous vaginal discharge is usually normal after hysterectomy or vaginal surgeries. 7. No SEXUAL INTERCOURSE, tampons, or douches until you are completely released from the post-operative care. 8. Avoid constipation by eating right and maybe using some Metamucil or Milk of Magnesia. 9. All prescription refills are given during the working hours. Please do no wait till it runs out. Call the clinic at [phone] before your medication runs out. The clinic will get in touch with your doctor to prescribe medications if necessary. 10. Please remain within 40 mile radius from our hospital because emergencies do happen now and then during the post-operative period. 11. If you have stairs at home, take one step at a time slowly and minimize the number of trips. It helps to stay in one floor for the next few days. No lifting except what you can lift by one hand until you are released from the post-operative care. 12. Driving is discouraged until you are well healed. It may be 3-4 weeks before you feel strong enough to drive. You should be able to turn and look through the rear window without pain and you should be able to push the brake pedal very hard without pain before you drive. No fast rules, but SAFETY should be your primary concern. DO NOT drive if you are on sedating medications such as narcotics. 13. Call the clinic (during working hours) to make urgent appointment or go to the Emergency room, if any of the following occurs: i. Vaginal bleeding becomes heavy, more than a period. ii. Incision becomes red and sore, or drains pus. iii. Your TEMPERATURE is over 100.4F or you have chill. iv. IV site becomes red and swollen (a little ``knot?? is usually OK) v. Persistent nausea and vomiting vi. Persistent constipation or diarrhea vii. Rash or allergic reaction to medications. Discharge Attestations AERIAL PHOTOGRAMMETRIST Time Spent in Discharge Care*: greater than 30 min Coding Level of Care Code Acute Code for Chg Fwd
[2024-02-02 12:15] VITALS: BP 128/67; PULSE 61; RESP 15; TEMP 36.6; O2SAT 99
== END 2024-02-02 12:15 | disposition home or self-care (01) ==
LOC: OBGYN 16:53
PROVIDERS: Admitting Provider Obstetrics & Gynecology; PCP Registered Nurse; Visit Provider Obstetrics & Gynecology
PROC: (CPT 57260; principal; 2024-02-01 13:10)
PROC: 0JQC0ZZ Repair Pelvic Region Subcutaneous Tissue and Fascia, Open Approach (ICD-10-PCS; CPT 57240; 2024-02-01 13:10)
PROC: (CPT 57250; 2024-02-01 13:10)
PROC: (CPT 57288; 2024-02-01 13:10)
DX: N81.4 Uterovaginal prolapse, unspecified (principal); D25.9 Leiomyoma of uterus, unspecified; E11.9 Type 2 diabetes mellitus without complications; I10 Essential (primary) hypertension; N72 Inflammatory disease of cervix uteri
CPT/HCPCS: 57260; 57288; 58260; 36415; 51798; 80048; 81001; 81025; 85025; 85027; 86850; 86900; 88307; C1713; G0378; J0330; J0690; J1100; J1200; J1885; J2250; J2405; J2704; J3010; J3490; J7030; J7121